=== PATIENT | male | born 2000 | race Caucasian/White ===

== ENCOUNTER 2024-02-17 05:54 | Emergency (ER) | payer SELFPAY ==
[~2024-02-17] VITALS: Ht 172.7 cm; Wt 90.7 kg
[2024-02-17 06:11] VITALS: O2SAT 97
== END 2024-02-17 07:09 | disposition left against medical advice (07) ==
LOC: ER 06:01
DX: R06.02 Shortness of breath (principal); Z53.21 Procedure and treatment not carried out due to patient leaving prior to being seen by health care provider
CPT/HCPCS: A4606; A4663